=== PATIENT | female | born 1995 | race Two or more races ===

== ENCOUNTER 2021-06-02 18:51 | Observation (INO) | payer OTHER ==
[~2021-06-02] VITALS: Ht 157.5 cm; Wt 127.0 kg
[2021-06-02] MEDS ORDERED: PREN1TAB52 PO (19:34)
[2021-06-02] MEDS ORDERED: ASPI81CH74 PO (19:34)
[2021-06-02 20:51] LABS: Urine Bacteria FEW /hpf (None Seen); Urine Blood Negative /uL (Negative); Urine Hyaline Cast FEW /lpf (0 - 2); Urine Specific Gravity 1.014 (1.001-1.035); Urine WBC 17 /hpf (0 - 5)
[2021-06-02 20:52] LABS: Amphetamine Screen, Urine NEGATIVE (NEGATIVE); Barbiturate Scree,Urine NEGATIVE (NEGATIVE); Benzodiazephine Screen, Urine NEGATIVE (NEGATIVE); Cannabinoid Screen, Urine NEGATIVE (NEGATIVE); Cocaine Screen, Urine NEGATIVE (NEGATIVE); Opiate Scree,Urine NEGATIVE (NEGATIVE)
[2021-06-02 20:58] LABS: Alcohol, Urine < 3.0 mg/dL (0-10); Phencyclidine Screen, Urine NEGATIVE (NEGATIVE)
[2021-06-02] MEDS ORDERED: cefTRIAXone W LIDOCAINE 1 GM IM IM STA (21:31)
== END 2021-06-02 22:43 | disposition home or self-care (01) ==
LOC: LDRP 18:51
PROVIDERS: ADMIT Obstetrics & Gynecology; ATTEND Obstetrics & Gynecology
DX: O23.42 Unspecified infection of urinary tract in pregnancy, second trimester (principal); N39.0 Urinary tract infection, site not specified; M54.50 Low back pain, unspecified; R10.9 Unspecified abdominal pain; Z3A.21 21 weeks gestation of pregnancy; Z79.899 Other long term (current) drug therapy
CPT/HCPCS: 59025; 76815; 80307; 81001; 81002; 96372; G0378; G0379; J0696

== ENCOUNTER 2024-08-19 20:43 | Emergency (ER) | payer MEDICAID, OTHER ==
[~2024-08-19] VITALS: Ht 162.6 cm; Wt 113.2 kg
[~2024-08-19 20:43] MED LIST: ASPI81CH74 PO; PREN1TAB52 PO
[2024-08-19] MEDS: IOHEXOL 300 MG/ML 100ML BOTTLE IJ ONE (22:02)
--- NOTE | 2024-08-19 22:09 | ED.PDOC ---
GI ASSESSMENT HPI Comments 29 y.o female presents to the ED for a chief complaint of mid back, upper abdominal, and left knee pain s/p mechanical fall today at the [employer] x 1999. Patient reports no head injuries or LOC. Patient reports having gastric bypass surgery done x 2 weeks ago and is concerned due to abdominal pain. Patient reports left knee is swollen but has full ROM. Patient deneis any dizziness, chest pain, fever, chills, nausea, vomiting. Patient denies any other medical history or known allergies. Chief Complaint: Fall Injury Time Seen by MD: 21:47 Reviewed Notes: Nurses Notes, Medications, Allergies Allergies: Coded Allergies: NO KNOWN ALLERGIES (Unverified , 06/02/21) Home Meds Reported Medications Aspirin (Aspirin 81 Low Dose) 81 Mg Chw, 81 MG PO for PREVENTIVE, TAB.CHEW 06/02/21 Vit W/ Ferrous Fumara ( Vitamins Plus Lo 27-1 mg) 1 Tab Tab, 1 TAB PO for SUPPLEMENT, TAB 06/02/21 Information Source: Patient Mode of Arrival: Ambulatory Duration: Since onset Quality: Sharp Vomitus: None Stool: Normal Severity: Moderate Recent: None Recent Hx of: None Pain Location: Epigastric, None Modifying Factors: Nothing Associated sign and symptoms: Abdominal Pain Past Medical History PAST MEDICAL HISTORY: Denies Surgical History (Other): gastric bypass PENCIL INSPECTOR History: No Pertinent PENCIL INSPECTOR History Family History Family History: Reviewed,noncontributory to illness Social History Smoker: Non-Smoker Alcohol: Denies ETOH Use Drugs: Denies Drug Use Lives In: Home Constitutional: denies: chills, diaphoresis, fatigue, fever, malaise, sweats, weakness, others EENTM: denies: blurred vision, double vision, ear bleeding, ear discharge, ear drainage, ear pain, ear ringing, eye pain, eye redness, hearing loss, mouth pain, mouth swelling, nasal discharge, nose bleeding, nose congestion, nose pain, photophobia, tearing, throat pain, throat swelling, voice changes, others Respiratory: denies: cough, hemoptysis, orthopnea, SOB at rest, shortness of breath, SOB with excertion, stridor, wheezing, others Cardiovascular: denies: chest pain, dizzy spells, diaphoresis, Dyspnea on exertion, edema, irregular heart beat, left arm pain, lightheadedness, palpitations, PND, syncope, others Gastrointestinal: reports: abdominal pain; denies: abdomen distended, blood streaked bowels, constipated, diarrhea, dysphagia, difficulty swallowing, hematemesis, melena, nausea, poor appetite, poor fluid intake, rectal bleeding, rectal pain, vomiting, others Genitourinary: denies: abnormal vagina bleeding, burning, dyspareunia, dysuria, flank pain, frequency, hematuria, incontinence, pain, , vagina discharge, urgency, others Neurological: denies: dizziness, fainting, headache, left sided numbness, left sided weakness, numbness, paresthesia, pre-existing deficit, right sided numbness, right sided weakness, seizure, speech problems, tingling, tremors, weakness, others Musculoskeletal: reports: back pain, others (left knee pain with swelling ); denies: gout, joint pain, joint swelling, muscle pain, muscle stiffness, neck pain Integumetry: denies: bruises, change in color, change in hair/nails, dryness, laceration, lesions, lumps, rash, wounds, others Allergic/Immunocompromised: denies: Difficulty Healing, Frequent Infections, Hives, Itching, others Hematologic/Lymphatic: denies: anemia, blood clots, easy bleeding, easy bruising, swollen glands, others Endocrine: denies: excessive hunger, excessive sweating, excessive thirst, excessive urination, flushing, intolerance to cold, intolerance to heat, unexplained weight gain, unexplained weight loss, others Psychiatric: denies: anxiety, bipolar disorder, depression, hopeless, panic disorder, schizophrenia, sleepless, suicidal, others All Other Systems: Reviewed and Negative Physical Exam General Appearance: No Apparent Distress, Normal HEENT: Normal ENT Inspection, Pharynx Normal, TMs Normal Neck: Full Range of Motion, Non-Tender, Normal, Normal Inspection Respiratory: Chest Non-Tender, Lungs Clear, No Accessory Muscle Use, No Respir atory Distress, Normal Breath Sounds Cardiovascular: No Edema, No JVD, No Murmur, No Gallop, Normal Peripheral Pulses, Regular Rate/Rhythm Breast Exam: Deferred Gastrointestinal: Normal Bowel Sounds, Tenderness (right/mid sided abdominal tenderness mild ) Genitalia: Deferred Pelvic: Deferred Rectal: Deferred Extremities: Normal inspection, Normal range of motion, Swelling (left knee with mild tenderness; normal ROM ) Musculoskeletal : Location: Bilateral Extremity Location: Back (negative spinal medial tenderness, negative ecchymosis) Apperance: Tenderness: Moderate Neurologic: Alert, cigar bander II-XII nml as Tested, No Motor Deficits, Normal Mood, No Sensory Deficits Cerebellar Function: Normal Reflexes: Normal Skin: Dry, Normal Color, Warm Lymphatic: NOT DONE Was a procedure done? Was a procedure done?: No GI differential Dx Differential Diagnosis: Bowel Obstruction, Esophagitis, Gastroenteritis, GI hemorrhage, Inflammatory BD, Trauma intraabdominal X-Ray, Labs, Meds, VS Vital Signs Date Time Temp Pulse Resp B/P (MAP) Pulse Ox O2 Delivery O2 Flow Rate FiO2 08/20/24 00:00 98.3 65 16 109/66 (80) 99 98.3 08/20/24 00:00 65 16 99 Room Air* 0 21 08/19/24 21:25 99.0 75 18 151/69 (96) 100 99.0 Lab Test 08/19/24 22:10 Range/Units White Blood Count 10.5 4.4-10.8 10^3/uL Red Blood Count 5.34 H 4.0-5.20 10^6/uL Hemoglobin 14.5 12.2-16.2 g/dL Hematocrit 42.8 36.0-46.0 % Mean Corpuscular Volume 80.2 80.0-100.0 fL Mean Corpuscular Hemoglobin 27.1 L 28.0-32.0 pg Mean Corpuscular Hemoglobin Concent 33.8 32.0-36.0 g/dL Red Cell Distribution Width 15.2 H 11.8-14.3 % Platelet Count 320 140-450 10^3/uL Mean Platelet Volume 11.2 H 6.9-10.8 fL Neutrophils (%) (Auto) 61.4 37.0-80.0 % Lymphocytes (%) (Auto) 28.4 10.0-50.0 % Monocytes (%) (Auto) 6.9 0.0-12.0 % Eosinophils (%) (Auto) 2.6 0.0-7.0 % Basophils (%) (Auto) 0.7 0.0-2.0 % Neutrophils # (Auto) 6.4 1.6-8.6 10 ^3/uL Lymphocytes # (Auto) 3.0 0.4-5.4 10 ^3/uL Monocytes # (Auto) 0.7 0-1.3 10 ^3/uL Eosinophils # (Auto) 0.3 0-0.8 10 ^3/uL Basophils # (Auto) 0.1 0-0.2 10 ^3/uL Nucleated Red Blood Cells 0.2 % Platelet Estimate Adequate Giant Platelets Few Sodium Level 141 136-145 mmol/L Potassium Level 3.5 3.5-5.1 mmol/L Chloride Level 104 98-107 mmol/L Carbon Dioxide Level 24 20-31 mmol/L Anion Gap 13 5-15 Blood Urea Nitrogen 13 9-23 mg/dL Creatinine 0.75 0.550-1.02 mg/dL Glomerular Filtration Rate Calc 111 >90 mL/min BUN/Creatinine Ratio 17.3 10.0-20.0 Serum Glucose 91 74-106 mg/dL Calcium Level 10.1 8.7-10.4 mg/dL Total Bilirubin 0.5 0.2-1.0 mg/dL Aspartate Amino Transferase (AST) 23 13-40 U/L Alanine Aminotransferase (ALT) 40 7-40 U/L Alkaline Phosphatase 86 46-116 U/L Total Protein 7.5 5.7-8.2 g/dL Albumin 4.7 3.2-4.8 g/dL Current Medications Medications (Trade) Dose Ordered Sig/David Route Start Time Stop Time Status Last Admin Acetaminophen/ Hydrocodone Bitart (Arvonia 5/325MG Tab) 1 tab ONCE ONCE PO 08/19/24 22:15 08/19/24 22:16 DC 08/19/24 23:34 Ondansetron HCl (Zofran Po) 4 mg ONCE ONCE PO 08/19/24 22:15 08/19/24 22:16 DC 08/19/24 23:34 X-Ray, Labs, Meds, VS Comment CT Abd/Pelv IMPRESSION: 1. Status post gastric bypass. No free air or evidence of rupture. 2. Hepatosplenomegaly CT L Spine IMPRESSION: 1. No CT evidence of acute fracture or traumatic mal-alignment of the bony lumbar spine. 2. Moderate disc space narrowing at T12-L1 MDM: Patient with history as above presented with abdominal pain. History obtained from patient. Patient was nontoxic, stable, afebrile, ambulatory, no acute distress. Exam as above. Labs reviewed. CBC did not show leukocytosis. No anemia. CMP did not show any electrolyte abnormalities. Independently reviewed imaging. Pelvis did not show acute abnormalities. CT L-spine did not show acute fracture. Left knee x-ray did not show acute fracture or dislocation. Reviewed external records. All findings were discussed with the patient. Differential diagnosis considered. Overall presentation is consistent with abdominal strain and back strain. Low suspicion for fracture, intra-abdominal bleed. Patient was treated with Arvonia with improvement in symptoms. Patient was reevaluated and vital signs were reviewed. Consideration was given for admission, but the patient was stable for outpatient management. Prescribed patient lidocaine patches for outpatient treatment. Disposition: Discussed the need to follow up diagnostics, including incidental findings. Discharged the patient with instructions to obtain outpatient follow up in 1-2 days of today's symptoms and findings, with strict return precautions if patient develops new or worsening symptoms. This medical document was created using the Nu[employer]ation system. Although this document has been carefully reviewed, there may still be some phonetic and typographical errors, which are due to imperfections of the software program, and do not reflect any compromise in the patient's medical care. Time of 1ST Reevaluation: 22:14 Reevaluation 1ST: Unchanged Time of 2ND Reevaluation: 00:39 Reevaluation 2ND: Improved Patient Education/Counseling: Diagnosis, Treatment, Prognosis Family Education/Counseling: No Family Present Departure 1 Departure Time of Disposition: 00:39 Impression: Primary Impression: Fall with no significant injury Qualified Codes: W19.XXXA - Unspecified fall, initial encounter Additional Impressions: Abdominal pain Qualified Codes: R10.11 - Right upper quadrant pain Contusion of left knee Qualified Codes: S80.02XA - Contusion of left knee, initial encounter Back strain Qualified Codes: S39.012A - Strain of muscle, fascia and tendon of lower back, initial encounter Disposition: HOME / SELF CARE / HOMELESS Condition: Fair e-Prescriptions Lidocaine (Lidocaine Patch 5%) 5 % Pad 5 % EX DAILY, #10 PAD Prov: HERIBERTO TONEY PAC 08/20/24 Critical Care Note Critical Care Time?: No Stability Stability form required: No Heart Score Heart Score: Heart Score Response (Comments) Value History N/A 0 EKG N/A 0 Age N/A 0 Risk Factors N/A 0 Troponin N/A 0 Total 0 I personally scribed for GENE MANDEL MD ([email or web address]) on 08/19/24 at 22:14. Electronically submitted by No Carranza ([facility]). HERIBERTO TONEY Aug 19, 2024 22:09 GENE MANDEL MD Aug 19, 2024 22:14
[2024-08-19 22:29] LABS: Basophils # (auto) 0.1 10 ^3/uL (0-0.2); Basophils % (auto) 0.7 % (0.0-2.0); Eosinophils # (auto) 0.3 10 ^3/uL (0-0.8); Eosinophils % (auto) 2.6 % (0.0-7.0); Hematocrit 42.8 % (36.0-46.0); Hemoglobin 14.5 g/dL (12.2-16.2); Lymphocytes % (auto) 28.4 % (10.0-50.0); Mean Corpuscular Hemoglobin 27.1 pg (28.0-32.0); Mean Corpuscular Hgb Conc. 33.8 g/dL (32.0-36.0); Mean Corpuscular Volume 80.2 fL (80.0-100.0); Monocytes # (auto) 0.7 10 ^3/uL (0-1.3); Monocytes % (auto) 6.9 % (0.0-12.0); Neutrophils # (auto) 6.4 10 ^3/uL (1.6-8.6); Neutrophils % (auto) 61.4 % (37.0-80.0); Nucleated Red Blood Cells % 0.2 %; Platelet Count (auto) 320 10^3/uL (140-450); Red Blood Cells 5.34 10^6/uL (4.0-5.20); Red Cell Distribution Width 15.2 % (11.8-14.3); White Blood Cell 10.5 10^3/uL (4.4-10.8)
[2024-08-19 22:48] LABS: Albumin 4.7 g/dL (3.2-4.8); Alkaline Phosphatase 86 U/L (46-116); Anion Gap 13 (5-15); Aspartate Aminotransferase 23 U/L (13-40); BUN/Creatinine Ratio 17.3 (10.0-20.0); Bilirubin, Total 0.5 mg/dL (0.2-1.0); Blood Urea Nitrogen 13 mg/dL (9-23); Calcium 10.1 mg/dL (8.7-10.4); Carbon Dioxide 24 mmol/L (20-31); Chloride 104 mmol/L (98-107); Glucose 91 mg/dL (74-106); Potassium 3.5 mmol/L (3.5-5.1); Sodium 141 mmol/L (136-145); Total Protein 7.5 g/dL (5.7-8.2)
[2024-08-19 22:54] LABS: Alanine Aminotransferase 40 U/L (7-40)
[2024-08-19] MEDS: ONDANSETRON ODT 4 MG TAB PO ONE (23:34)
[2024-08-19] MEDS: HYDROcodone-ACET 5/325MG TAB PO ONE (23:34)
--- NOTE | 2024-08-19 23:47 | DVH ---
EXAM: CT LS SPINE WO CONTRAST INDICATION: R/o fracture COMPARISON: None TECHNIQUE: Multiple axial CT images of the lumbar spine were obtained using bone algorithm. Axial an d coronal reformatting was done. Bone and soft tissue windows were reviewed. Radiation Dose Information: CT Dose: CTDI volume is mGy. Dose-length product is mGy*cm FINDINGS: No CT evidence of acute fracture or traumatic mal-alignment. The visualized paraspinal soft tissues a re grossly unremarkable. Moderate disc space narrowing at T12-L1 There is multilevel degenerative change of the spine, with di sc space narrowing, subchondral sclerosis, and marginal osteophyte formation. IMPRESSION: 1. No CT evidence of acute fracture or traumatic mal-alignment of the bony lumbar spine. 2. Moderate disc space narrowing at T12-L1 3. Radiation optimization: All CT scans at this facility use at least one of these dose optimization techniques: automated exposure control mA and/or kV adjustment per patient size (includes targeted e xams where dose is matched to clinical indication) or iterative reconstruction.
--- NOTE | 2024-08-19 23:52 | DVH ---
Exam: CT CT AB PEL WITH IV CON ONLY History: R/o surgical site rupture COMPARISON: None Technique: Multidetector spiral CT of the abdomen and pelvis was performed from lung bases to pubic s ymphysis. Intravenous contrast was administered during this examination. Portal venous imaging was obtained. Axial, coronal and sagittal multiplanar reformats were performed by the technologist on a separate workstation. Radiation Dose : 1. Abdomen/Pelvis: CTDIvol 25.82mGy, DLP 1459.26 mGy*cm. CONTRAST: Type of contrast: Omni 300 Contrast injected: 100 ml Findings: Lung Bases: No acute or significant lung base finding. Normal heart size. No pleural or pericardial effusion. Liver: Hepatomegaly measuring up to 21.5 cm. Diffuse steatosis Gallbladder and Biliary Tree: Unremarkable Spleen: Splenomegaly measuring up to 15.3 cm. Pancreas: The pancreas is normal in appearance without focal lesions or abnormal enhancement. Adrenal Glands: Unremarkable Kidneys: No hydronephrosis. Bladder: Unremarkable Bowel: Status post gastric bypass. No free air or evidence of rupture. Small bowel and colon are norm al in caliber and distribution. The appendix is not visualized; however, no secondary findings of ac belinda appendicitis identified. Ascites: Absent Lymphadenopathy: No mesenteric, retroperitoneal or periportal lymphadenopathy. Abdominal Wall and Mesentery: Unremarkable. Vasculature: The visualized abdominal aorta is normal in size and caliber. Abdominal and pelvic vess els demonstrate normal enhancement. Pelvic Organs: Unremarkable Musculoskeletal: No aggressive focal bony lesions, acute fractures or dislocation. IMPRESSION: 1. Status post gastric bypass. No free air or evidence of rupture. 2. Hepatosplenomegaly Radiation optimization: All CT scans at this facility use at least one of these dose optimization adolfo hniques: automated exposure control mA and/or kV adjustment per patient size (includes targeted exam s where dose is matched to clinical indication) or iterative reconstruction.
[2024-08-20] VITALS: BP 109/66; PULSE 65; RESP 16; TEMP 98.3; O2SAT 99
[2024-08-20 00:13] LABS: Giant Platelets Few; Platelet Estimate Adequate
[2024-08-20] MEDS ORDERED: LIDO5PAD12 EX (00:41)
--- NOTE | 2024-08-20 01:38 | DVH ---
CLINICAL INDICATION: R/o fracture TECHNIQUE: XY left KNEE 3V XRAY Comparison: None FINDINGS/IMPRESSION: There is no evidence of acute fracture or dislocation. Soft tissues are unremarkable.
== END 2024-08-20 01:08 | disposition home or self-care (01) ==
LOC: ER 20:43
DX: S39.012A Strain of muscle, fascia and tendon of lower back, initial encounter (principal); S80.02XA Contusion of left knee, initial encounter; R10.13 Epigastric pain; Z98.890 Other specified postprocedural states; W18.39XA Other fall on same level, initial encounter; Y93.89 Activity, other specified; Y92.89 Other specified places as the place of occurrence of the external cause; Y99.8 Other external cause status
CPT/HCPCS: 36415; 72131; 73562; 74177; 80053; 85025; 99285; Q0162; Q9967

== ENCOUNTER 2025-01-22 12:15 | Emergency (ER) | payer MEDICAID ==
[~2025-01-22] VITALS: Ht 157.5 cm; Wt 94.2 kg
[~2025-01-22 12:15] MED LIST changes: +LIDO5PAD12 EX
[2025-01-22 12:17] VITALS: TEMP 99
--- NOTE | 2025-01-22 12:42 | ED.PDOC ---
Musculoskeletal HPI Comments THIS IS A 29 YEAR-OLD FEMALE WHO PRESENTS TO THE ED WITH A CHIEF COMPLAINT OF LEFT ANKLE PAIN WITH ASSOCIATED SWELLING MINUTES AGO. PATIENT STATES SHE WAS TAKING HER CHILD TO URGENT CARE WHEN SHE TWISTED AND HEARD A "POP" TO THE LEFT ANKLE. WALKING INCREASES LEFT ANKLE PAIN. PATIENT HAS NO FURTHER COMPLAINTS AT THIS TIME. PATIENT OTHERWISE DENIES N/V, CHEST PAIN, DIZZINESS, WEAKNESS, FEVER, OR CHILLS. PATIENT IS ALERT, ORIENTED X 4, AND HAS STEADY GAIT. Chief Complaint: Lower Extremity Time Seen by MD: 12:37 Reviewed Notes: Nurses Notes, Medications, Allergies Allergies: Coded Allergies: NO KNOWN ALLERGIES (Unverified , 06/02/21) Home Meds Active Scripts Ibuprofen (Ibuprofen) 800 Mg Tab, 1 TAB PO TID, #30 TAB Prov:AKILA HAMILTON PA 01/22/25 Lidocaine (Lidocaine Patch 5%) 5 % Pad, 5 % EX DAILY, #10 PAD Prov:HERIBERTO TONEY PAC 08/20/24 Reported Medications Aspirin (Aspirin 81 Low Dose) 81 Mg Chw, 81 MG PO for PREVENTIVE, TAB.CHEW 06/02/21 Vit W/ Ferrous Fumara ( Vitamins Plus Lo 27-1 mg) 1 Tab Tab, 1 TAB PO for SUPPLEMENT, TAB 06/02/21 Information Source: Patient Mode of Arrival: Ambulatory Location: Left Extremity Location: Ankle Timing: Hours Prehospital treatment: None Severity: Moderate Bear Weight: Limited Pain: Moderate Onset of Symptoms: During Exercise Symptoms: Swelling, Pain DVT Risk Factors: NONE Last Tetanus: UTD Associated signs and symptoms: Ankle pain (LEFT ) Past Medical History PAST MEDICAL HISTORY: Denies Surgical History: Denies all surgeries VETERINARY TECHNOLOGIST History: No Pertinent VETERINARY TECHNOLOGIST History Family History Family History: Reviewed,noncontributory to illness Social History Smoker: Non-Smoker Alcohol: Denies ETOH Use Drugs: Denies Drug Use Lives In: Home Constitutional: denies: chills, diaphoresis, fatigue, fever, malaise, sweats, weakness, others EENTM: denies: blurred vision, double vision, ear bleeding, ear discharge, ear drainage, ear pain, ear ringing, eye pain, eye redness, hearing loss, mouth pain, mouth swelling, nasal discharge, nose bleeding, nose congestion, nose pain , photophobia, tearing, throat pain, throat swelling, voice changes, others Respiratory: denies: cough, hemoptysis, orthopnea, SOB at rest, shortness of breath, SOB with excertion, stridor, wheezing, others Cardiovascular: denies: chest pain, dizzy spells, diaphoresis, Dyspnea on exertion, edema, irregular heart beat, left arm pain, lightheadedness, palpitations, PND, syncope, others Gastrointestinal: denies: abdomen distended, abdominal pain, blood streaked bowels, constipated, diarrhea, dysphagia, difficulty swallowing, hematemesis, melena, nausea, poor appetite, poor fluid intake, rectal bleeding, rectal pain, vomiting, others Genitourinary: denies: abnormal vagina bleeding, burning, dyspareunia, dysuria, flank pain, frequency, hematuria, incontinence, pain, , vagina discharge, urgency, others Neurological: denies: dizziness, fainting, headache, left sided numbness, left sided weakness, numbness, paresthesia, pre-existing deficit, right sided numbness, right sided weakness, seizure, speech problems, tingling, tremors, weakness, others Musculoskeletal: reports: joint pain, joint swelling; denies: back pain, gout, muscle pain, muscle stiffness, neck pain, others Integumetry: denies: bruises, change in color, change in hair/nails, dryness, laceration, lesions, lumps, rash, wounds, others Allergic/Immunocompromised: denies: Difficulty Healing, Frequent Infections, Hives, Itching, others Hematologic/Lymphatic: denies: anemia, blood clots, easy bleeding, easy bruising, swollen glands, others Endocrine: denies: excessive hunger, excessive sweating, excessive thirst, excessive urination, flushing, intolerance to cold, intolerance to heat, unexplained weight gain, unexplained weight loss, others Psychiatric: denies: anxiety, bipolar disorder, depression, hopeless, panic disorder, schizophrenia, sleepless, suicidal, others All Other Systems: Reviewed and Negative Physical Exam General Appearance: Mild Distress, Normal HEENT: Normal ENT Inspection, PERRL/EOMI, Pharynx Normal, TMs Normal Neck: Full Range of Motion, Non-Tender, Normal, Normal Inspection Respiratory: Chest Non-Tender, Lungs Clear, No Accessory Muscle Use, No Respiratory Distress, Normal Breath Sounds Cardiovascular: No Edema, No JVD, No Murmur, No Gallop, Normal Peripheral Pulses, Regular Rate/Rhythm Breast Exam: Deferred Gastrointestinal: No Organomegaly, Non Tender, No Pulsatile Mass, Normal Bowel Sounds, Soft Genitalia: Deferred Pelvic: Deferred Rectal: Deferred Extremities: Decreased range of motion (SLIGHTLY), No calf tenderness, Normal capillary refill, No pedal edema, Swelling (TENDERNESS AND MILD SWELLING ON LEFT LATERAL ANKLE, NO BONY TENDERNESS AND DEFORMITY. ), Tender (AND MILD SWELLING ON LEFT LATERAL ANKLE, NO BONY TENDERNESS AND DEFORMITY. 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 Was a procedure done?: No Differential Diagnosis EXT Differential Diagnosis: Fracture, Sprain, DJD, Contusion, Strain, Bursitis X-Ray, Labs, Meds, VS Vital Signs Date Time Temp Pulse Resp B/P (MAP) Pulse Ox O2 Delivery O2 Flow Rate FiO2 01/22/25 12:53 71 18 100 Room Air 01/22/25 12:53 71 18 108/60 (76) 100 01/22/25 12:17 99.0 98 15 129/53 76 99.0 PATIENT: ANABEL CLARKACCT: [id number]: [id number] : 1995 LOC: ER ROOM / BED: / AGE / SEX: 29 / F ADM STATUS: REG ER SERVICE 1249 ORDERING PHYSICIAN: AKILA HAMILTON PROCEDURE(s): LANKL - L ANKLE 3 VIEW REASON: TWISTED LEFT ANKLE ORDER NUMBER(s): [id number], ACCESSION NUMBER(s): [id number] EXAM: XY L ANKLE 3 VIEW HISTORY: TWISTED LEFT ANKLE COMPARISON: None TECHNIQUE: Three views of the left ankle were performed. FINDINGS: No acute fracture or dislocation are identified about the left ankle. The mortise is intact. Small plantar calcaneal bone spur and Achilles insertion enthesophyte are incidentally noted. There is a small bone spur on the outer margin of the medial malleolus. IMPRESSION: No acute fracture of the left ankle. Nonacute findings as detailed above. ATED BY: NIKKY RUBIO MD DICTATED DATE/TIME: 01/22/25 1352 SIGNED BY: NIKKY RUBIO MD SIGNED DATE/TIME: 01/22/25 1352 CC: X-Ray, Labs, Meds, VS Comment EXTERNAL MEDICAL RECORDS REVIEWED: [NONE] INDEPENDENT HISTORIANS: [NONE] SOCIAL DETERMINANTS OF HEALTH: [NONE] LABS ORDERED: NONE REVIEWED AND INTERPRETED RESULTS: NONE IMAGING ORDERED: L ANKLE XRAY TREATMENTS ORDERED: MOTRIN 800MG PROCEDURES PERFORMED: NONE CRITICAL CARE TIME: NONE I HAVE DISCUSSED THE PATIENT WITH THE ATTENDING PHYSICIAN, DR. JALLOH, AND HE AGREES WITH THE PATIENT'S PLAN OF CARE AND DISPOSITION. BASED ON HISTORY OF PRESENT ILLNESS, AND PHYSICAL EXAM, PATIENT WILL BE DISCHARGED HOME. DISCUSSED PLAN FOR DISCHARGE HOME WITH RX [MOTRIN 800MG]. MEDICATION WARNINGS GIVEN. SHARED DECISION MAKING: DISCUSSED WITH PATIENT THAT THEIR WORKUP WAS NORMAL. PATIENT INSTRUCTED TO FOLLOW UP WITH PRIMARY CARE PROVIDER IN 1-2 DAYS FOR RE- EVALUATION OF SYMPTOMS. PATIENT VERBALIZES UNDERSTANDING TO RETURN TO ED FOR NEW OR WORSENING SYMPTOMS OR IF FOLLOW UP WITH PCP CANNOT BE OBTAINED. PATIENT FEELS COMFORTABLE GOING HOME AT THIS TIME. ALL QUESTIONS ADDRESSED AT TIME OF DISCHARGE. Images Reviewed?: Images reviewed and evaluated by me Time of 1ST Reevaluation: 13:00 Reevaluation 1ST: Improved Patient Education/Counseling: Diagnosis, Treatment, Need For Follow Up Family Education/Counseling: Diagnosis, Treatment, No Family Present Medical Screening: No EMC Exist At This Time Departure 1 Departure Time of Disposition: 13:00 Impression: Primary Impression: Sprain of left ankle Qualified Codes: S93.402A - Sprain of unspecified ligament of left ankle, initial encounter Disposition: HOME / SELF CARE / HOMELESS Condition: Stable Additional Instructions: FOLLOW-UP WITH PCP IN 1 TO 2 DAYS. TAKE MEDICATIONS PRESCRIBED. RETURN TO ED FOR ANY NEW OR WORSENING SYMPTOMS. e-Prescriptions Ibuprofen (Ibuprofen) 800 Mg Tab 1 TAB PO TID, #30 TAB Prov: AKILA HAMILTON 01/22/25 Discharged With: Self Critical Care Note Critical Care Time?: No Stability Stability form required: No Heart Score Heart Score: Heart Score Response (Comments) Value History N/A 0 EKG N/A 0 Age N/A 0 Risk Factors N/A 0 Troponin N/A 0 Total 0 I personally scribed for AKILA HAMILTON ([email or web address]) on 01/22/25 at 12:42. Narcisa ctronically submitted by Tori Meza ([email or web address]). I personally scribed for AKILA HAMILTON ([email or web address]) on 01/22/25 at 12:55. El ectronically submitted by Tori Meza ([facility]). AKILA HAMILTON Jan 22, 2025 12:42
[2025-01-22 12:53] VITALS: BP 108/60; PULSE 71; RESP 18; O2SAT 100
[2025-01-22] MEDS: IBUPROFEN 800 MG TAB PO ONE (13:53)
--- NOTE | 2025-01-22 13:54 | DVH ---
EXAM: XY L ANKLE 3 VIEW HISTORY: TWISTED LEFT ANKLE COMPARISON: None TECHNIQUE: Three views of the left ankle were performed. FINDINGS: No acute fracture or dislocation are identified about the left ankle. The mortise is intact . Small plantar calcaneal bone spur and Achilles insertion enthesophyte are incidentally noted. There is a small bone spur on the outer margin of the medial malleolus. IMPRESSION: No acute fracture of the left ankle. Nonacute findings as detailed above.
[2025-01-22] MEDS ORDERED: IBUP-1456 PO (13:55)
== END 2025-01-22 13:59 | disposition home or self-care (01) ==
LOC: ER 12:15
DX: S93.492A Sprain of other ligament of left ankle, initial encounter (principal); Z79.82 Long term (current) use of aspirin; Z79.899 Other long term (current) drug therapy; X50.1XXA Overexertion from prolonged static or awkward postures, initial encounter; Y93.89 Activity, other specified; Y92.89 Other specified places as the place of occurrence of the external cause; Y99.8 Other external cause status
CPT/HCPCS: 73610